=== PATIENT | female | born 1990 | race Two or more races ===

== ENCOUNTER 2018-12-26 05:53 | Inpatient (IN) | payer BC ==
[~2018-12-26] VITALS: Ht 167.6 cm; Wt 109.1 kg
[2018-12-26] MEDS ORDERED: D5%-LACTATED RINGERS 1,000 ML IV SCH (05:55)
[2018-12-26] MEDS ORDERED: OXYTOCIN 30U/ 0.9% NaCL 500ML 500 ML IV ONE (05:55)
[2018-12-26] MEDS ORDERED: OXYTOCIN 30U/ 0.9% NaCL 500ML 500 ML IV PRN (05:55)
[2018-12-26] MEDS ORDERED: METOCLOPRAMIDE 5 MG/ML, 2ML IVPush PRN (06:00)
[2018-12-26] MEDS ORDERED: ALUMINUM/MAG/SIMETHICONE 30 ML UDC PO PRN (06:00)
[2018-12-26] MEDS ORDERED: FENTANYL PF 100 MCG/2ML IV PRN (06:00)
[2018-12-26] MEDS ORDERED: SODIUM CITRATE/CITRIC ACID 15 ML UDC PO PRN (06:00)
[2018-12-26] MEDS ORDERED: FENTANYL PF 100 MCG/2ML IVPush PRN (06:00)
[2018-12-26] MEDS ORDERED: ONDANSETRON 2MG/ML, 2ML IVPush PRN ×2 (06:00→18:30)
[2018-12-26] MEDS ORDERED: CALCIUM CARBONATE 500 MG TAB.CHEW PO PRN (06:00)
[2018-12-26] MEDS ORDERED: LIDOCAINE 1%, 20ML ONE (06:05)
[2018-12-26] MEDS ORDERED: NEWBORN KIT ONE (06:05)
[2018-12-26] MEDS ORDERED: OXYTOCIN 30U/ 0.9% NaCL 500ML 500 ML ONE ×2 (06:06→23:52)
[2018-12-26] MEDS ORDERED: MISOPROSTOL 200 MCG TABLET ONE (06:06)
[2018-12-26] MEDS: LACTATED RINGERS 1,000 ML IV SCH ×2 (06:19→17:13)
[2018-12-26 06:21] LABS: BASOPHILS # (AUTO) 0.03 x10^3/uL (0-0.1); BASOPHILS % (AUTO) 0 % (0-1); EOSINOPHILS # (AUTO) 0.04 x10^3/uL (0-0.4); EOSINOPHILS % (AUTO) 0 % (1-7); LYMPHOCYTES # (AUTO) 1.86 x10^3/uL (1-3.4); LYMPHOCYTES % (AUTO) 18 % (22-44); MD NO; MEAN CORPUSCULAR HEMOGLOBIN 29.1 pg (27.0-34.8); MEAN CORPUSCULAR VOLUME 88.3 fL (80-100); MONOCYTES # (AUTO) 0.59 x10^3/uL (0.2-0.8); MONOCYTES % (AUTO) 6 % (2-9); NEUTROPHILS # (AUTO) 7.87 x10^3/uL (1.8-6.8); NEUTROPHILS % (AUTO) 76 % (42-75); PLATELET COUNT 242 x10^3/uL (130-400); RED BLOOD COUNT 4.33 x10^6/uL (3.82-5.3); RED CELL DISTRIBUTION WIDTH 15.9 % (9.6-15.2)
[2018-12-26] MEDS ORDERED: PLEASE ENTER HEIGHT AND WEIGHT MC SCH (06:30)
[2018-12-26] MEDS ORDERED: MISOPROSTOL 25 MCG TABLET ONE ×2 (07:03→11:26)
[2018-12-26] MEDS: MISOPROSTOL 25 MCG TABLET VG PRN ×2 (07:11→11:34)
[2018-12-26 07:52] VITALS: BP 114/66
[2018-12-26] MEDS ORDERED: FENTANYL/BUPIV./NS/PF 250 ML EPIDCONT SCH ×2 (17:13→18:12)
[2018-12-26] MEDS ORDERED: FENTANYL PF 500 MCG, BUPIVACAINE/PF 0.5%, 30ML 62.5 ML in SODIUM CHLORIDE 0.9% 177.5 ML EPIDCONT SCH (17:18)
[2018-12-26] MEDS ORDERED: BUPIVACAINE 0.25% ONE ×2 (17:51→17:56)
[2018-12-26] MEDS ORDERED: FENTANYL/BUPIV./NS/PF 250 ML EPIDCONT ONE (17:56)
[2018-12-26] MEDS ORDERED: LIDOCAINE/PF 1.5%-EPI 1:200K, 30ML ONE (17:56)
[2018-12-26] MEDS ORDERED: LACTATED RINGERS 1,000 ML IV SCH (18:12)
[2018-12-26] MEDS ORDERED: EPHEDRINE 50 MG/ML, 1ML IVPush PRN (18:30)
[2018-12-26] MEDS ORDERED: DIPHENHYDRAMINE 50 MG/ML, 1ML IVPush PRN (18:30)
[2018-12-26] MEDS ORDERED: LACTATED RINGERS 1,000 ML IVBOLUS PRN (18:30)
[2018-12-26] MEDS ORDERED: NALOXONE 0.4 MG/ML, 1ML IVPush PRN (18:30)
[2018-12-26] MEDS ORDERED: OXYTOCIN 30U/ 0.9% NaCL 500ML 500 ML IV SCH (23:46)
[2018-12-27] MEDS ORDERED: CARBOPROST TROMETHAMINE 250 MCG/ML, 1ML IM PRN
[2018-12-27] MEDS ORDERED: MISOPROSTOL 200 MCG TABLET PR PRN
[2018-12-27] MEDS ORDERED: DOCUSATE 100 MG CAPSULE PO PRN
[2018-12-27] MEDS ORDERED: METHYLERGONOVINE 0.2 MG/ML IM PRN
[2018-12-27] MEDS ORDERED: OXYcodone/APAP 5/325MG TABLET PO PRN
[2018-12-27 02:52] VITALS: BP 108/71
[2018-12-27] MEDS: IBUPROFEN 600 MG TABLET PO PRN ×2 (04:12→15:00)
[2018-12-27] MEDS ORDERED: MEASLES,MUMPS&RUBELLA VACC/PF 0.5 ML SQ-VACC ONE ×2 (06:30→22:49)
[2018-12-27 08:00] VITALS: BP 97/61
[2018-12-27 08:50] LABS: BASOPHILS # (AUTO) 0.05 x10^3/uL (0-0.1); BASOPHILS % (AUTO) 0 % (0-1); EOSINOPHILS # (AUTO) 0.03 x10^3/uL (0-0.4); EOSINOPHILS % (AUTO) 0 % (1-7); LYMPHOCYTES # (AUTO) 1.56 x10^3/uL (1-3.4); LYMPHOCYTES % (AUTO) 10 % (22-44); MD NO; MEAN CORPUSCULAR HEMOGLOBIN 28.3 pg (27.0-34.8); MEAN CORPUSCULAR HGB CONC 32.4 g/dL (32.4-35.8); MEAN CORPUSCULAR VOLUME 87.4 fL (80-100); MEAN PLATELET VOLUME 9.4 fL (7.4-10.4); MONOCYTES # (AUTO) 0.69 x10^3/uL (0.2-0.8); MONOCYTES % (AUTO) 5 % (2-9); NEUTROPHILS # (AUTO) 13.15 x10^3/uL (1.8-6.8); NEUTROPHILS % (AUTO) 85 % (42-75); PLATELET COUNT 219 x10^3/uL (130-400); RED BLOOD COUNT 4.03 x10^6/uL (3.82-5.3); RED CELL DISTRIBUTION WIDTH 15.7 % (9.6-15.2)
[2018-12-27] MEDS: PRENATAL VIT/IRON/FA 1 EACH TABLET PO SCH (09:00)
[2018-12-27 12:00] VITALS: BP 102/70
[2018-12-27 15:55] VITALS: BP 101/66
[2018-12-27 21:00] VITALS: BP 109/71
[2018-12-28] MEDS: IBUPROFEN 600 MG TABLET PO PRN ×2 (00:20→07:58)
[2018-12-28 07:35] VITALS: BP 101/66
[2018-12-28] MEDS: PRENATAL VIT/IRON/FA 1 EACH TABLET PO SCH (07:58)
[2018-12-28] MEDS ORDERED: IBUP-1222 PO (10:35)
[2018-12-28] MEDS ORDERED: SENN-92 PO (10:35)
== END 2018-12-28 13:00 | disposition home or self-care (01) | DRG 807 ==
LOC: LDIP 05:53 → 2NW 12-27 01:55
PROVIDERS: ADMIT Obstetrics & Gynecology; ATTEND Obstetrics & Gynecology
PROC: 10E0XZZ Delivery of Products of Conception, External Approach (ICD-10-PCS; principal; 2018-12-26)
PROC: 0KQM0ZZ Repair Perineum Muscle, Open Approach (ICD-10-PCS; 2018-12-26)
PROC: 3E033VJ Introduction of Other Hormone into Peripheral Vein, Percutaneous Approach (ICD-10-PCS; 2018-12-26)
PROC: 10907ZC Drainage of Amniotic Fluid, Therapeutic from Products of Conception, Via Natural or Artificial Opening (ICD-10-PCS; 2018-12-26)
PROC: 3E0R3BZ Introduction of Anesthetic Agent into Spinal Canal, Percutaneous Approach (ICD-10-PCS; 2018-12-26)
PROC: 00HU33Z Insertion of Infusion Device into Spinal Canal, Percutaneous Approach (ICD-10-PCS; 2018-12-26)
PROC: 10H07YZ Insertion of Other Device into Products of Conception, Via Natural or Artificial Opening (ICD-10-PCS; 2018-12-26)
DX: O99.214 Obesity complicating childbirth (principal); Z37.0 Single live birth; Z3A.39 39 weeks gestation of pregnancy; Z88.0 Allergy status to penicillin; O69.81X0 Labor and delivery complicated by cord around neck, without compression, not applicable or unspecified; O70.1 Second degree perineal laceration during delivery
CPT/HCPCS: 36415; J3490; 85025; 86850; 86900; G0378; J2590; J3010; J7120